=== PATIENT | female | born 1970 | race American Indian/Alaskan Native ===

== ENCOUNTER 2016-11-09 18:42 | Emergency (ER) | payer MEDICARE ==
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
[2016-11-09 19:37] LABS: Basophils % (Auto) 1.2 % (0.0-1.8); Eosinophils % (Auto) 0.3 % (0.0-4.3); Hematocrit 39.7 % (30.3-42.9); Hemoglobin 13.1 gm/dl (10.1-14.3); Mean Corpuscular HGB Conc 33 % (30-34); Mean Corpuscular Hemoglobin 30 pg (28-32); Mean Corpuscular Volume 90 fl (79-97); Platelet Count 187 K/mm3 (140-440); Red Blood Count 4.41 M/mm3 (3.65-5.03); Red Cell Distribution Width 13.5 % (13.2-15.2); White Blood Count 4.7 K/mm3 (4.5-11.0)
[2016-11-09 19:49] LABS: Alanine Aminotransferase 28 units/L (7-56); Albumin 4.5 g/dL (3.9-5); Albumin/Globulin Ratio 1.3 %; Alkaline Phosphatase 79 units/L (35-129); Anion Gap 20 mmol/L; BUN/Creatinine Ratio 8.75; Blood Urea Nitrogen 7 mg/dL (7-17); Calcium 9.3 mg/dL (8.4-10.2); Carbon Dioxide 22 mmol/L (22-30); Chloride 99.9 mmol/L (98-107); Creatine Kinase 70 units/L (30-135); Glucose 91 mg/dL (65-100); Sodium 138 mmol/L (137-145); Total Protein 7.9 g/dL (6.3-8.2)
[2016-11-10 04:25] LABS: Urine Drugs of Abuse Note Disclamer
[2016-11-10 04:40] LABS: Bacteria,Urine 1+ /HPF (Negative); Bilirubin,Urine NEG (Negative); Blood,Urine NEG (Negative); Ketones,Urine NEG (Negative); Leukocyte Esterase,Urine LG (Negative); Mucus,Urine 2+ /HPF; Nitrite,Urine NEG (Negative); Protein,Urine <15 mg/dL mg/dL (Negative); Urobilinogen,Urine < 2.0 mg/dL (<2.0)
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
[2016-11-10] MEDS ORDERED: NACL 0.9% 1000 ML 1,000 ML IV ONE (06:55)
[2016-11-10 06:58] VITALS: BP 136/84
[2016-11-10] MEDS ORDERED: TYLENOL PO ONE (07:09)
[2016-11-10] MEDS ORDERED: celeXA PO ONE (07:10)
== END 2016-11-10 07:31 | disposition home or self-care (01) ==
LOC: ED 18:42
DX: Z76.0 Encounter for issue of repeat prescription (principal); F20.9 Schizophrenia, unspecified; F14.10 Cocaine abuse, uncomplicated; F12.10 Cannabis abuse, uncomplicated; F15.10 Other stimulant abuse, uncomplicated; I10 Essential (primary) hypertension; F41.9 Anxiety disorder, unspecified; F17.210 Nicotine dependence, cigarettes, uncomplicated
CPT/HCPCS: 36415; 80053; 80307; 81001; 81025; 82140; 82550; 83690; 84484; 85025; 93005; 93010; 99284; G0480; 80320

== ENCOUNTER 2016-11-11 03:13 | Emergency (ER) | payer MEDICARE ==
[2016-11-11 04:11] LABS: Basophils % (Auto) 2.5 % (0.0-1.8); Eosinophils % (Auto) 2.3 % (0.0-4.3); Hematocrit 41.2 % (30.3-42.9); Hemoglobin 13.5 gm/dl (10.1-14.3); Mean Corpuscular HGB Conc 33 % (30-34); Mean Corpuscular Hemoglobin 30 pg (28-32); Mean Corpuscular Volume 90 fl (79-97); Platelet Count 175 K/mm3 (140-440); Red Blood Count 4.58 M/mm3 (3.65-5.03); Red Cell Distribution Width 13.3 % (13.2-15.2); White Blood Count 4.1 K/mm3 (4.5-11.0)
[2016-11-11 04:39] LABS: Anion Gap 20 mmol/L; Blood Urea Nitrogen 9 mg/dL (7-17); Calcium 8.6 mg/dL (8.4-10.2); Carbon Dioxide 18 mmol/L (22-30); Chloride 101.4 mmol/L (98-107); Glucose 122 mg/dL (65-100); Potassium 4.8 mmol/L (3.6-5.0); Sodium 135 mmol/L (137-145)
[2016-11-11] MEDS ORDERED: celeXA PO ONE (09:48)
--- NOTE | 2016-11-11 09:50 | Emergency Department Report ---
HPI - General Chief Complaint: Psych Time Seen by Provider: 11/11/16 09:35 - HPI HPI: This is a 46-year-old female presents to the emergency department with the request for a mental health evaluation and possible inpatient placement. The patient was recently here requesting a medication refill. At that time she was evaluated by myself and a mental health counselor for some possible delusions she was having regarding a break in to her motel room. However at that time the patient did not appear to fulfill the criteria necessary to be made a 1013. She was given a refill of both her Celexa and Zyprexa by prescription. The patient returns today saying that she has been unable to fill these medications secondary to their cost and her lack of insurance. She admits to auditory and visual hallucinations but denies any suicidal or homicidal ideations. ED Past Medical Hx - Past Medical History Previous Medical History?: Yes Hx Hypertension: Yes Hx Liver Disease: Yes (HEPATITIS B AND C) Hx Seizures: Yes Hx Psychiatric Treatment: Yes (ANXIETY /SCHIZOAFFECTIVE DISORDER) - Surgical History Past Surgical History?: Yes Additional Surgical History: "BRAIN SURGERY". CHEST TUBE - Social History Smoking Status: Current Every Day Smoker Substance Use Type: None - Medications Home Medications: Home Medications Medication Instructions Recorded Confirmed Last Taken Type Citalopram Hydrobromide [celeXA] 40 mg PO DAILY #30 tablet 11/10/16 11/11/1605/25 Rx Olanzapine [ZyPREXA] 60 mg PO QHS 11/11/16 11/11/16 11/06/16 History clonazePAM [ Klonopin] 0.5 mg PO QHS 11/11/16 11/11/16 11/06/16 History clonazePAM [Klonopin] 1 mg PO QAM 11/11/16 11/11/16 11/06/16 History ED Review of Systems ROS: Stated complaint: MH EVAL Other details as noted in HPI Comment: All other systems reviewed and negative Constitutional: denies: chills, fever Eyes: denies: eye pain, eye discharge, vision change ENT: denies: ear pain, throat pain Respiratory: denies: cough, shortness of breath, wheezing Cardiovascular: denies: chest pain, palpitations Gastrointestinal: denies: abdominal pain, nausea, diarrhea Genitourinary: denies: urgency, dysuria, discharge Musculoskeletal: denies: back pain, joint swelling, arthralgia Skin: denies: rash, lesions Neurological: denies: headache, weakness, paresthesias Psychiatric: auditory hallucinations, visual hallucinations. denies: homicidal thoughts, suicidal thoughts Physical Exam - Physical Exam Vital Signs: Vital Signs 11/11/16 11/11/16 03:34 09:26 Temperature 97.6 F Pulse Rate 60 Respiratory 20 20 Rate Blood Pressure 135/91 O2 Sat by Pulse 100 99 Oximetry Physical Exam: GENERAL: The patient is well-developed well-nourished. HEENT: Normocephalic. Atraumatic. Extraocular motions are intact. Patient has moist mucous membranes. Pupils equal reactive to light bilaterally. NECK: Supple. Trachea is midline. CHEST/LUNGS: Clear to auscultation. There is no respiratory distress noted. HEART/CARDIOVASCULAR: Regular. There is no tachycardia. There is no gallop rub or murmur. ABDOMEN: Abdomen is soft, nontender. Patient has normal bowel sounds. There is no abdominal distention. SKIN: Skin is warm and dry. NEURO: The patient is awake, alert, and oriented. The patient is cooperative. The patient has no focal neurologic deficits. The patient has normal speech. MUSCULOSKELETAL: There is no tenderness or deformity. There is no limitation range of motion. There is no evidence of acute injury. ED Course Vital Signs 11/11/16 11/11/16 03:34 09:26 Temperature 97.6 F Pulse Rate 60 Respiratory 20 20 Rate Blood Pressure 135/91 O2 Sat by Pulse 100 99 Oximetry ED Medical Decision Making - Lab Data Result diagrams: 11/11/16 03:46 11/11/16 03:46 - Medical Decision Making 46-year-old female presents the emergency department with continued complaint of lack of her psychiatric medications. The patient was just here and had signs of delusions but at that point did not appear to be a to be a 1013. Patient comes back in today at did not fill any of the medications that were prescribed for her and therefore has not been stabilized. At first the patient does not display any acute psychosis. However while in the emergency department the patient has started to respond much more to internal stimuli and continues to display some delusions showing some acute psychosis. This time the patient will be made a 1013 and we will seek inpatient psychiatric admission. Vital signs are stable throughout her ED course. Her labs and unremarkable thus far. We are waiting on a urinalysis and if there is a urinary tract infection and will be treated with antibiotics. Otherwise I do not believe any findings on the urine drug screen would keep her from being cleared. She is otherwise medically cleared for psychiatric placement. - Differential Diagnosis schizophrenia, bipolar disorder, schizoaffective, substance abuse Critical Care Time: No Critical care attestation.: If time is entered above; I have spent that time in minutes in the direct care of this critically ill patient, excluding procedure time. ED Disposition Clinical Impression: Delusions Psychosis Qualifiers: Psychosis type: unspecified psychosis type Qualified Code(s): F29 - Unspecified psychosis not due to a substance or known physiological condition Disposition: DC/TX-65 PSY HOSP/PSY UNIT Is pt being admited?: No Condition: Stable Referrals: PRIMARY CARE, [Primary Care Provider] - 3-5 Days Time of Disposition: 12:43
[2016-11-11 15:52] LABS: Urine Drugs of Abuse Note Disclamer
[2016-11-11 16:07] LABS: Bacteria,Urine 2+ /HPF (Negative); Bilirubin,Urine NEG (Negative); Blood,Urine NEG (Negative); Ketones,Urine 20 mg/dL (Negative); Leukocyte Esterase,Urine LG (Negative); Mucus,Urine 3+ /HPF; Nitrite,Urine NEG (Negative)
[2016-11-11 16:08] LABS: WBC,Urine > 182.0 /HPF (0.0-6.0)
[2016-11-11] MEDS ORDERED: ZOFRAN ODT PO ONE (16:36)
[2016-11-11] MEDS ORDERED: BACTRIM DS PO ONE (19:21)
[2016-11-12] MEDS ORDERED: TYLENOL PO ONE (11:26)
[2016-11-12] MEDS ORDERED: NON-FORMULARY (Citalopram Hydrobromide [Celexa] 40 MG) PO SCH (11:30)
[2016-11-12] MEDS ORDERED: celeXA ONE (12:07)
[2016-11-12] MEDS ORDERED: celeXA PO SCH (12:30)
--- NOTE | 2016-11-12 16:04 | Emergency Department Report ---
Blank Doc - Documentation Documentation: Patient has been evaluated by mental health. Patient is not suicidal or homicidal. She does not meet criteria for inpatient placement. She does not want help with her drug problems. She has prescriptions for medications waiting for her at the pharmacy. Patient will be discharged home at this time.
[2016-11-12 16:34] VITALS: BP 135/75
--- NOTE | 2016-11-12 17:40 | Consultation ---
History of Present Illness - Reason for Consult Consult date: 11/12/16 Reason for consult: Mental Health Evaluation Requesting physician: ALONSO FUNEZ - Chief Complaint Chief complaint: 'I need my prescription filled" - History of Present Psychiatric Illness This is a 46-year-old female presents to the emergency department with the request medication refill. Today patient is calm and cooperative during the assessment. She stated that she came to [facility] to refill her Celexa and Klonopin prescriptions. She stated that she ran out of money to pay to refill for her prescriptions, so she decided to come to the hospital. During our conversation, she stated that her friend will give her money to purchase her medications at [facility] across the street. She denies SI/HI's, AVH's, and depression symptoms. She is positive for marijuana and cocaine. She stated that she does not need a referral for rehab services. She stated, "I can get help on my own." She denies excessive alcohol consumption. Patient stated that she has a psychiatrist. Medications and Allergies Allergies Allergy/AdvReac Type Severity Reaction Status Date / Time amoxicillin Allergy Rash Verified 11/09/16 18:54 Home Medications Medication Instructions Recorded Confirmed Last Taken Type Citalopram Hydrobromide [celeXA] 40 mg PO DAILY #30 tablet 11/10/16 11/11/1605/25 Rx Olanzapine [ZyPREXA] 60 mg PO QHS 11/11/16 11/11/16 11/06/16 History clonazePAM [KlonoPIN] 0.5 mg PO QHS 11/11/16 11/11/16 11/06/16 History clonazePAM [Klonopin] 1 mg PO QAM 11/11/16 11/11/16 11/06/16 History Past psychiatric history - Past Medical History Past Medical History: No medical history Past Surgical History: No surgical history - past Psychiatric treatment and history Psych: Depression psychiatric treatment history: Patient stated that she have been in multiple inpatient psy settings. She denies a fam psy hx. - Social History Social history: ([employer] graduate) Mental Status Exam - Vital signs Last Vital Signs Temp 98.2 F 11/12/16 16:33 Pulse 73 11/12/16 16:33 Resp 16 11/12/16 16:33 BP 135/75 11/12/16 16:33 Pulse Ox 98 11/12/16 16:33 - Exam Narrative exam: ROS: (-) psychosis, (-) depression MSE: Appearance: calm, cooperative Behavior: good eye contact Speech: regular rate and tone Mood: "I am okay" Affect: labile Thought Process: linear Thought Content: denies SI/HI's and AVH's Motor Activity: ambulatory Cognition: A/Ox 3 Insight: fair Judgment: fair Results Result Diagrams: 11/11/16 03:46 11/11/16 03:46 All other labs normal. Assessment and Plan Assessment and plan: Impression: Historical Dx: Depression/MAYO. Today patient is calm and cooperative during the assessment. Patient is no harm to self or others. Recommendation/Plan: Rescind 1013. Patient can follow-up with outpatient psy services. Patient has a psychiatrist.
[2016-11-12] MEDS ORDERED: OLANZAPINE 30 MG PO SCH (22:00)
[2016-11-12] MEDS ORDERED: OLANZAPINE PO SCH (22:00)
[2016-11-13] MEDS ORDERED: NON-FORMULARY (Clonazepam [Klonopin] 1 MG) PO SCH (10:00)
== END 2016-11-12 16:34 | disposition home or self-care (01) ==
LOC: ED 03:13 → EEVIPCON 03:13 → ED 11-12 16:34
DX: F29 Unspecified psychosis not due to a substance or known physiological condition (principal); F22 Delusional disorders; I10 Essential (primary) hypertension; F25.9 Schizoaffective disorder, unspecified; F17.200 Nicotine dependence, unspecified, uncomplicated
CPT/HCPCS: 36415; 80048; 80307; 81001; 81025; 84703; 85025; 99284; G0480; 80320; Q0162